=== PATIENT | female | born 1995 | race African-American/Black ===

== ENCOUNTER 2016-11-26 14:33 | Emergency (ER) | payer BC ==
[~2016-11-26] VITALS: Ht 170.2 cm; Wt 56.2 kg
[~2016-11-26 14:33] MED LIST: BIRTH CONTROL
[2016-11-26] MEDS ORDERED: BENADRYL25 MG PO (16:24)
[2016-11-26] MEDS ORDERED: REGLAN 10 MG TA10 MG PO (16:24)
[2016-11-26 16:46] VITALS: BP 143/86
== END 2016-11-26 17:03 | disposition home or self-care (01) ==
LOC: ER 14:33
DX: G43.909 Migraine, unspecified, not intractable, without status migrainosus (principal)